=== PATIENT | male | born 1960 | race Caucasian/White ===

== ENCOUNTER 2020-07-13 13:18 | Emergency (ER) | payer OTHER, SELFPAY ==
[~2020-07-13] VITALS: Ht 172.7 cm; Wt 65.8 kg
[2020-07-13 13:45] VITALS: BP_SYST 105
[2020-07-14] MEDS ORDERED: HYDROcodone/ACETAMIN 5-325 MG TAB (NORCO/ VICODIN) ONE (02:01)
[2020-07-14] MEDS ORDERED: ZIT250 PO (03:01)
== END 2020-07-13 14:45 | disposition left against medical advice (07) ==
LOC: SED 13:18
DX: U07.1 COVID-19 (principal); M79.18 Myalgia, other site; Z53.21 Procedure and treatment not carried out due to patient leaving prior to being seen by health care provider

== ENCOUNTER 2020-07-13 22:44 | Emergency (ER) | payer OTHER, SELFPAY ==
[~2020-07-13] VITALS: Ht 172.7 cm; Wt 73.5 kg
--- NOTE | 2020-07-13 23:18 | NUR ---
Patient to ER bed 8 to gown for evaluation. Side rails up.
--- NOTE | 2020-07-13 23:19 | NUR ---
Patient BIB by family from home. C/O body ache x 1 day. Patient had sore throat, body ache on 07/08/20, Patient did COVID-19 test on 07/09/20 (result positive). Yesterday patient started fever, headche, body ache. A/O,X4, no SOB, headache-10/30, place patient on media monitor and pulse ox, EKG at bedside.
[2020-07-13 23:20] VITALS: BP_SYST 105
--- NOTE | 2020-07-13 23:20 | NUR ---
RT at bedside for ABG blood drawn,
--- NOTE | 2020-07-13 23:20 | NUR ---
# 20 gauge angiocath placed to left forearm. Use of asceptic technique. Opsite placed over site. Blood return noted. Blood for lab drawn from site. Flushed with 10 cc of normal saline. No evidence of infiltration noted. Patient tolerated well.
[2020-07-13 23:39] LABS: BASOPHILS % (AUTO) 0.2 % (0.0-2.0); HEMATOCRIT 43.4 % (36-54); HEMOGLOBIN 14.9 g/dL (14.0-18.0); LYMPHOCYTES # (AUTO) 1.2 K/uL (1.0-5.5); LYMPHOCYTES % (AUTO) 34.3 % (20.5-51.5); MEAN CORPUSCULAR HEMOGLOBIN 30 pg (27-31); MEAN CORPUSCULAR HGB CONC 34 % (32-36); MEAN CORPUSCULAR VOLUME 89 fL (79.0-98.0); MONOCYTES # (AUTO) 0.4 K/uL (0.0-1.0); NEUTROPHILS % (AUTO) 55.5 % (40.0-70.0); PLATELET COUNT (AUTO) 113 K/uL (130-430); RED BLOOD CELL COUNT(AUTO) 4.89 MIL/uL (4.2-6.2); RED CELL DISTRIBUTION WIDTH 13.7 % (9.0-15.0); WHITE BLOOD COUNT (AUTO) 3.6 K/uL (4.8-10.8)
[2020-07-13 23:59] LABS: CREATININE 1.08 mg/dL (0.55-1.30); POTASSIUM 3.7 mmol/L (3.5-5.1)
[2020-07-14 00:11] LABS: INR 0.9 (0.80-1.20); PROTHROMBIN TIME 9.5 SECS (9.5-12.5)
[2020-07-14 00:12] LABS: ALBUMIN 3.2 g/dL (3.4-4.8); TOTAL BILIRUBIN 0.3 mg/dL (0.0-1.0)
[2020-07-14 00:36] LABS: BILIRUBIN,URINE NEGATIVE (NEGATIVE); CLARITY/URINE CLEAR (CLEAR); COLOR,URINE YELLOW (YELLOW); GLUCOSE,URINE NEGATIVE (NEGATIVE); KETONES,URINE 1+ (NEGATIVE); LEUKOCYTE ESTERASE ,URINE NEGATIVE (NEGATIVE); NITRITE, URINE NEGATIVE (NEGATIVE); PROTEIN URINE 2+ (NEGATIVE); UROBILINOGEN,URINE 0.2 (0.2-1.0)
[2020-07-14 00:48] LABS: BLOOD, URINE TRACE (NEGATIVE)
[2020-07-14 00:50] LABS: BACTERIA,URINE FEW /HPF (None Seen); WBC,URINE 0-3 /HPF (0-3)
[2020-07-14 00:56] LABS: C-REACTIVE PROTEIN QUANT 5.1 mg/dL (0-0.5)
--- NOTE | 2020-07-14 01:50 | NUR ---
ER at bedside examining patient.
[2020-07-14] MEDS ORDERED: HYDROcodone/ACETAMIN 5-325 MG TAB (NORCO/ VICODIN) PO ONE (02:00)
[2020-07-14] MEDS ORDERED: ZIT250 PO (03:01)
[2020-07-14 03:09] VITALS: BP_SYST 107
--- NOTE | 2020-07-14 03:09 | NUR ---
Patient given written and verbal discharge instructions and verbalizes understanding. ER MD discussed with patient the results and treatment provided. Patient in stable condition. ID arm band removed. IV catheter removed intact and dressing applied, no active bleeding. Rx of Zithromax given. Patient educated on pain management and to follow up with PMD. Pain Scale 2/10. Opportunity for questions provided and answered. Medication side effect fact sheet provided.
== END 2020-07-14 03:09 | disposition home or self-care (01) ==
LOC: SED 22:44
DX: U07.1 COVID-19 (principal); R06.02 Shortness of breath
CPT/HCPCS: 36415; 36600; 71045; 80053; 81000; 82550; 82728; 82803-TC; 83605; 83615; 83880; 84484; 85025; 85379; 85384; 85610-TC; 85730-TC; 86140; 87040-TC; 87086; 93005; 99285